=== PATIENT | male | born 1970 | race Caucasian/White ===

== ENCOUNTER 2016-09-30 12:49 | Emergency (ER) | payer MEDICAID ==
[~2016-09-30] VITALS: Wt 105.0 kg
[~2016-09-30 12:49] MED LIST: FIORICET PO
[2016-09-30] MEDS ORDERED: HYDROCODONE/APAP (5/325) TAB PO ONE (16:00)
[2016-09-30 17:16] LABS: ADD UMIC NO; URINE BILIRUBIN (Dip) NEGATIVE (NEGATIVE); URINE BLOOD (Dip) NEGATIVE (NEGATIVE); URINE COLOR LT. YELLOW (YELLOW); URINE GLUCOSE (Dip) NEGATIVE (NEGATIVE); URINE KETONES (Dip) NEGATIVE (NEGATIVE); URINE LEUKOCYTE ESTERASE (Dip) NEGATIVE (NEGATIVE); URINE NITRITE (Dip) NEGATIVE (NEGATIVE); URINE TOTAL PROTEIN (Dip) NEGATIVE (NEGATIVE); URINE UROBILINOGEN (Dip) 0.2 E.U./dL (0.1-1.0)
[2016-09-30 17:22] LABS: ADD SCAN DIFF NO
[2016-09-30 17:44] LABS: ALBUMIN 4.3 g/dl (3.3-4.9); BASOPHILS % 0.5 % (0.0-2.0); EOSINOPHILS # 0.1 10^3/ul (0.0-0.5); EOSINOPHILS % 1.6 % (0.0-7.0); HEMATOCRIT 41.3 % (42.0-52.0); HEMOGLOBIN 13.7 g/dl (14.0-18.0); LYMPHOCYTES # 3.2 10^3/ul (0.8-2.9); LYMPHOCYTES % 42.2 % (15.0-51.0); MEAN CORPUSCULAR HEMOGLOBIN 28.4 pg (29.0-33.0); MEAN CORPUSCULAR HGB CONC 33.2 g/dl (32.0-37.0); MEAN CORPUSCULAR VOLUME 85.7 fl (82.0-101.0); MEAN PLATELET VOLUME 10.6 fl (7.4-10.4); MONOCYTE # 0.4 10^3/ul (0.3-0.9); MONOCYTES % 5.7 % (0.0-11.0); NEUTROPHIL # 3.8 10^3/ul (1.6-7.5); NEUTROPHILS % 49.7 % (39.0-77.0); PLATELET COUNT 245 10^3/UL (140-415); RED BLOOD COUNT 4.82 10^6/ul (4.70-6.10); RED CELL DISTRIBUTION WIDTH 13.5 % (11.5-14.5); WHITE BLOOD COUNT 7.7 10^3/ul (4.8-10.8)
[2016-09-30 17:47] LABS: BILIRUBIN,INDIRECT 0.1 mg/dl (0-1.1); BILIRUBIN,TOTAL 0.1 mg/dl (0.2-1.3); CREATININE 0.82 mg/dl (0.61-1.24)
[2016-09-30 17:48] LABS: ALBUMIN/GLOBULIN RATIO 1.19; CALCIUM 9.4 mg/dl (8.4-10.2); TOTAL PROTEIN 7.9 g/dl (6.1-8.1)
--- NOTE | 2016-09-30 17:54 | RADRPT ---
PROCEDURE: CT Abdomen and Pelvis without contrast. CLINICAL INDICATION: Abdominal and pelvic pain. Right flank pain. TECHNIQUE: CT scan of the abdomen and pelvis without contrast was performed. Coronal and sagittal reformatted images were obtained from the axial source images. Images were reviewed on a high-[employer] PACS workstation. Total exam DLP is 1182.96 mGy-cm. CTDIvol is 20.01 mGy. One or more of the following dose reduction techniques were used: Automated exposure control, adjustment of the mA and/ or kV according to patient size, use of iterative reconstruction technique. COMPARISON: None. FINDINGS: The lung bases are normal. There is no pleural effusion. The liver is normal in size and attenuation. There is no focal hepatic lesion. The gallbladder and bile ducts are normal. The spleen is normal in size. There is no focal splenic lesion. Both adrenals are normal with no enlargement or mass. The pancreas is unremarkable with no mass or evidence of pancreatitis. There is no renal mass or hydronephrosis. There is no renal calculus or ureteral calculus. The abdominal aorta is not dilated. There is no retroperitoneal lymphadenopathy or mass. There is no pelvic lymphadenopathy or mass. The bladder and distal ureters are normal. The periappendiceal region is unremarkable with no evidence of appendicitis. The bowel and mesentery are normal. There is no free fluid or free gas. The osseous structures are unremarkable with no fracture or lytic lesion. IMPRESSION: 1. Unremarkable CT scan of the abdomen and pelvis. 2. No urinary tract calculus or hydronephrosis. 3. No evidence of appendicitis. RPTAT: QQ .Rodolfo Perez MD, MD Date Time Electronically viewed and signed by .Rodolfo Perez MD, on 09/30/2016 17:54 .R/
[2016-09-30] MEDS ORDERED: TRAM50TA2 PO (18:04)
[2016-09-30 18:26] VITALS: BP 132/77; PULSE 67; RESP 16; TEMP 97.6
--- NOTE | 2016-09-30 19:05 | ERD ---
ER Documentation Chief Complaint Date/Time DATE: 09/30/16 TIME: 19:03 Chief Complaint LOWER BACK PAIN X 3 DAYS HPI 38-year-old male otherwise healthy comes in right-sided back pain for the past 3 days. He states it is painful to move, the deep breath in or out. No fevers or chills. Denies dysuria, urgency or frequency. ROS All systems reviewed and are negative except as per history of present illness. Medications Home Meds Active Scripts Tramadol HCl (Tramadol HCl) 50 Mg Tablet, 50 MG PO Q4 Y for PAIN, #15 TAB Prov:ANA DEAN PA-C 09/30/16 Acetamin/Butalbital/Caffeine* (Fioricet*) 1 Tab Tab, 1 TAB PO Q6H Y for PAIN, # 30 TAB Prov:ROYAL BETTENCOURT PA-C 03/28/16 Allergies Allergies: Coded Allergies: No Known Allergy (Unverified , 03/28/16) PMhx/Soc Medical and Surgical Hx: pt denies Medical Hx, pt denies Surgical Hx Hx Alcohol Use: No Hx Substance Use: No Hx Tobacco Use: No Physical Exam Vitals Vital Signs Date Time Temp Pulse Resp B/P Pulse Ox O2 Delivery O2 Flow Rate FiO2 09/30/16 18:26 97.6 67 16 132/77 98 Room Air 09/30/16 12:54 98.0 97 18 180/86 99 Physical Exam General: Well-developed, well-nourished. The patient appears in no acute distress. HEENT: Head is normocephalic, atraumatic. No scleral icterus. Neck: Supple. Nontender. Lungs: Clear to auscultation. Normal air movement. Heart: Regular rate and rhythm. S1 and S2 are normal. No murmurs, gallops, or rubs. Abdomen: Soft, nontender, nondistended. Bowel sounds are normoactive. Back: diffuse right lateral back pain, no midline tenderness. Extremities: No clubbing or cyanosis. Normal pulses. Moving extremities x 4. No weakness. Neurologic: Alert and oriented 3. No focal deficits. Skin: Normal turgor. No rash or lesions. Result Diagram: 09/30/16 1710 09/30/16 1710 Results 24 hrs Laboratory Tests Test 09/30/16 16:55 09/30/16 17:10 Urine Bilirubin NEGATIVE Urine Clarity CLEAR Urine Color LT. YELLOW Urine Glucose NEGATIVE% Urine Hemoglobin NEGATIVE Urine Ketones NEGATIVE Urine Leukocyte Esterase NEGATIVE Urine Nitrite NEGATIVE Urine Specific [place] 1.025 Urine Total Protein NEGATIVE Urine Urobilinogen 0.2 E.U./dL Urine pH 6.0 Alanine Aminotransferase (ALT/SGPT) 66IU/L Albumin 4.3g/dl Albumin/Globulin Ratio 1.19 Alkaline Phosphatase 71IU/L Anion Gap 18 Aspartate Amino Transf (AST/SGOT) 37IU/L Basophils # 0.010^3/ul Basophils % 0.5% Blood Urea Nitrogen 14mg/dl Calcium Level 9.4mg/dl Carbon Dioxide Level 26mmol/L Chloride Level 104mmol/L Creatinine 0.82mg/dl Direct Bilirubin 0.00mg/dl Eosinophils # 0.110^3/ul Eosinophils % 1.6% Globulin 3.60g/dl Glucose Level 91mg/dl Hematocrit 41.3% Hemoglobin 13.7g/dl Indirect Bilirubin 0.1mg/dl Lipase 104U/L Lymphocytes # 3.210^3/ul Lymphocytes % 42.2% Mean Corpuscular Hemoglobin 28.4pg Mean Corpuscular Hemoglobin Concent 33.2g/dl Mean Corpuscular Volume 85.7fl Mean Platelet Volume 10.6fl Monocytes # 0.410^3/ul Monocytes % 5.7% Neutrophils # 3.810^3/ul Neutrophils % 49.7% Nucleated Red Blood Cells # 0.010^3/ul Nucleated Red Blood Cells % 0.0/100WBC Platelet Count 17291^3/UL Potassium Level 4.0mmol/L Red Blood Count 4.8210^6/ul Red Cell Distribution Width 13.5% Sodium Level 144mmol/L Total Bilirubin 0.1mg/dl Total Protein 7.9g/dl White Blood Count 7.710^3/ul Current Medications Medications (Trade) Dose Ordered Sig/Desi Route PRN Reason Start Time Stop Time Status Last Admin Dose Admin Acetaminophen/ Hydrocodone Bitart ([place] (5/325)) 1 tab ONCE ONCE PO 09/30/16 16:00 09/30/16 16:01 DC 09/30/16 17:02 PROCEDURE: CT Abdomen and Pelvis without contrast. CLINICAL INDICATION: Abdominal and pelvic pain. Right flank pain. TECHNIQUE: CT scan of the abdomen and pelvis without contrast was performed. Coronal and sagittal reformatted images were obtained from the axial source images. Images were reviewed on a high-resolution PACS workstation. Total exam DLP is 1182.96 mGy-cm. CTDIvol is 20.01 mGy. One or more of the following dose reduction techniques were used: Automated exposure control, adjustment of the mA and/or kV according to patient size, use of iterative reconstruction technique. COMPARISON: None. FINDINGS: The lung bases are normal. There is no pleural effusion. The liver is normal in size and attenuation. There is no focal hepatic lesion. The gallbladder and bile ducts are normal. The spleen is normal in size. There is no focal splenic lesion. Both adrenals are normal with no enlargement or mass. The pancreas is unremarkable with no mass or evidence of pancreatitis. There is no renal mass or hydronephrosis. There is no renal calculus or ureteral calculus. The abdominal aorta is not dilated. There is no retroperitoneal lymphadenopathy or mass. There is no pelvic lymphadenopathy or mass. The bladder and distal ureters are normal. The periappendiceal region is unremarkable with no evidence of appendicitis. The bowel and mesentery are normal. There is no free fluid or free gas. The osseous structures are unremarkable with no fracture or lytic lesion. IMPRESSION: 1. Unremarkable CT scan of the abdomen and pelvis. 2. No urinary tract calculus or hydronephrosis. 3. No evidence of appendicitis. RPTAT: QQ .Rodolfo Perez MD, MD Date Time Electronically viewed and signed by .Rodolfo Perez MD, on 09/30/2016 17:54 Procedures/MDM 38-year-old male comes in with right-sided back pain, differentials include muscle strain, pyelonephritis, kidney abscess, lung abscess, liver abscess, acute hepatobiliary disease, acute appendicitis, and among others. Patient's workup was unremarkable, there is no leukocytosis, no evidence of an acute or surgical abdominal process. He was given [place] here, and his blood pressure improved as well as his pain. I believe his pain is likely musculoskeletal, advised to take anti-inflammatories, short course of tramadol be given as well for breakthrough pain. Departure Diagnosis: Primary Impression: Back pain Condition: Good Patient Instructions: Self-Care for Low Back Pain Additional Instructions: Call your primary care doctor TOMORROW for an appointment during the next 1-2 days.See the doctor sooner or return here if your condition worsens before your appointment time. ANA DEAN PA-C Sep 30, 2016 19:04
== END 2016-09-30 18:03 | disposition home or self-care (01) ==
LOC: FTE 16:13
DX: M54.5 Low back pain (principal)
CPT/HCPCS: 36415; 74176; 80053; 81003; 83690; 85025; Z7502; Z7610

== ENCOUNTER 2018-09-15 22:25 | Inpatient (IN) | payer MEDICAID ==
[~2018-09-15] VITALS: Ht 165.1 cm; Wt 103.1 kg
[~2018-09-15 22:25] MED LIST changes: +TRAM50TA2 PO
[2018-09-16] MEDS ORDERED: KETOROLAC 60 MG INJ IM STA (01:52)
--- NOTE | 2018-09-16 01:57 | ERD ---
ER Documentation Chief Complaint Chief Complaint PAIN BETWEEN ANUS AND COCCYX X'S 3 DAYS HPI 48-year-old male presents with pain in the sacral area for the past 3 days. States that the pain started after getting up to use the restroom. States the pain is increased when he sits down. Denies seeing any blood on his stool or any hematochezia or hemorrhoids. States that he is also been getting some fevers. He has been taking Motrin for the pain but last time he took it was yesterday. States the pain is 10 out of 10. Denies past medical history. Denies allergies. Denies medications. Denies surgeries. Denies alcohol, tobacco, drug use. Up to date on vaccines. ROS All systems reviewed and are negative except as per history of present illness. Medications Home Meds Active Scripts Hydrocodone/Acetaminophen ([place] 5-325 Tablet) 1 Each Tablet, 1 EACH PO Q6 for pain, #10 TAB Prov:CHET LANDIN [employer] 09/17/18 Amoxicillin/Potassium Clav (Amox-Clav 875-125 mg Tablet) 875-125 mg Tab, 1 TAB PO BID, #20 TAB Prov:CHET LANDIN [employer] 09/17/18 Discontinued Scripts Tramadol HCl (Tramadol HCl) 50 Mg Tablet, 50 MG PO Q4 PRN for PAIN, #15 TAB Prov:ANA DEAN PA-C 09/30/16 Acetamin/Butalbital/Caffeine* (Fioricet*) 1 Tab Tab, 1 TAB PO Q6H PRN for PAIN, #30 TAB Prov:ROYAL BETTENCOURT PA-C 03/28/16 Allergies Allergies: Coded Allergies: No Known Allergy (Unverified , 03/28/16) PMhx/Soc Medical and Surgical Hx: pt denies Medical Hx, pt denies Surgical Hx Hx Alcohol Use: No Hx Substance Use: No Hx Tobacco Use: No Smoking Status: Never smoker FmHx Family History: No diabetes, No coronary disease, No other Physical Exam Vitals Vital Signs Date Temp Pulse Resp B/P (MAP) Pulse Ox O2 O2 Flow FiO2 Time Delivery Rate 09/15/18 98.1 89 20 159/101 97 22:34 (120) Physical Exam Const: No acute distress Head: Atraumatic Eyes: Normal Conjunctiva ENT: Normal External Ears, Nose and Mouth. Neck: Full range of motion. No meningismus. Resp: Clear to auscultation bilaterally Cardio: Regular rate and rhythm, no murmurs Rectal: No hemorrhoids, masses, lesions noted. Tendernes to palpation in the 9:00 perirectal area without any erythema or drainage noted. Neur: Awake and alert Psych: Normal Mood and Affect Result Diagram: 09/17/18 0509 09/17/18 0509 Results 24 hrs Laboratory Tests Test 09/16/18 02:55 White Blood Count 10.7 10^3/ul Red Blood Count 4.35 10^6/ul Hemoglobin 12.3 g/dl Hematocrit 37.3 % Mean Corpuscular Volume 85.7 fl Mean Corpuscular Hemoglobin 28.3 pg Mean Corpuscular Hemoglobin Concent 33.0 g/dl Red Cell Distribution Width 12.9 % Platelet Count 250 10^3/UL Mean Platelet Volume 10.0 fl Immature Granulocytes % 0.400 % Neutrophils % 69.2 % Lymphocytes % 23.6 % Monocytes % 5.6 % Eosinophils % 0.7 % Basophils % 0.5 % Nucleated Red Blood Cells % 0.0 /100WBC Immature Granulocytes # 0.040 10^3/ul Neutrophils # 7.4 10^3/ul Lymphocytes # 2.5 10^3/ul Monocytes # 0.6 10^3/ul Eosinophils # 0.1 10^3/ul Basophils # 0.1 10^3/ul Nucleated Red Blood Cells # 0.0 10^3/ul Sodium Level 140 mmol/L Potassium Level 4.0 mmol/L Chloride Level 103 mmol/L Carbon Dioxide Level 29 mmol/L Anion Gap 8 Blood Urea Nitrogen 16 mg/dl Creatinine 0.94 mg/dl Est Glomerular Filtrat Rate mL/min > 60 mL/min Glucose Level 102 mg/dl Calcium Level 9.5 mg/dl Total Bilirubin 0.1 mg/dl Direct Bilirubin 0.00 mg/dl Indirect Bilirubin 0.1 mg/dl Aspartate Amino Transf (AST/SGOT) 29 IU/L Alanine Aminotransferase (ALT/SGPT) 45 IU/L Alkaline Phosphatase 79 IU/L Total Protein 8.0 g/dl Albumin 4.1 g/dl Globulin 3.90 g/dl Albumin/Globulin Ratio 1.05 Current Medications Medications Dose Sig/Desi Start Time Status Last (Trade) Ordered Route PRN Stop Time Admin Dose Reason Admin Ketorolac 60 mg ONCE STAT 09/16/18 DC 09/16/18 Tromethamine IM 01:52 02:05 (Toradol) 09/16/18 01:54 Sodium 100 ml @ ud STK-MED 09/16/18 DC Chloride ONCE .ROUTE 03:33 09/16/18 03:34 Iohexol 150 ml STK-MED 09/16/18 DC (Omnipaque ONCE .ROUTE 03:33 300mg/ ml) 09/16/18 03:34 Sodium 1,000 ml @ [id number] IV 09/16/18 DC 09/16/18 Chloride 80 mls/hr 05:45 06:50 09/16/18 07:18 Procedures/MDM DIAGNOSTIC IMAGING REPORT Patient: JASSON VEGA : 1970 Age: 48 Sex: M MR #: [id number] DOS: 09/16/18 0152 Ordering MD: RADHA KIMBROUGH Location: [facility] Room/Bed: PROCEDURE: CT pelvis with contrast CLINICAL INDICATION: 3-day history of sacral region pain. TECHNIQUE: Spiral CT images through the pelvis without administration of oral and during administration of 100 cc of Omnipaque-300 contrast material. Scanning of the abdomen was specifically not requested. Multiplanar reconstructions. The total exam CTDI equals 15.05 mGy and the total exam DLP equals 694.50 mGy-cm. One or more of the following dose reduction techniques were used: automated exposure control, adjustment of the mA and/or kV according to patient size, or use of iterative reconstruction technique. DICOM images are available. COMPARISON: CT 09/30/2016 FINDINGS: There is distal perirectal fat stranding with small nodes present. Slightly more inferiorly, there is also a crescentic hypodense collection measuring 16 mm transverse by 8 mm AP (axial image 107) by 13 mm in length (coronal image 60) consistent with a perirectal abscess, extending from the 5 o'clock to 9 o'clock location. No obvious inferior fistulous extension to the gluteal cutaneous surface is seen. Remaining visualized colon and small bowel are within normal limits as is the appendix. The prostate is normal in size. The urinary bladder is unremarkable. Scattered small nodes with surrounding haziness along the root of the mesentery suggesting ongoing or recurrent mild nonspecific mesenteritis, that is unchanged in appearance. Osseous structures stable without acute or aggressive appearing osseous abnormality. IMPRESSION: Small posterior perirectal abscess without definite fistulous extension inferiorly to the gluteal skin surface. There is distal rectal wall thickening with perirectal fat stranding and small nodes present. MRI could be obtained for further evaluation on a follow-up basis. Stable appearance of small mesenteric nodes with surrounding haziness, as above. RPTAT: HSAF Physician Dustin Date Time Electronically viewed and signed by Whitley Liriano Physician on 09/16/2018 04:36 RF/ CC: RADHA KIMBROUGH [phone] MDM: 48-year-old male presents with pain in the sacral area for the past 3 days. States that the pain started after getting up to use the restroom. States the pain is increased when he sits down. Denies seeing any blood on his stool or any hematochezia or hemorrhoids. States that he is also been getting some fevers. He has been taking Motrin for the pain but last time he took it was yesterday. States the pain is 10 out of 10. Rectal exam there was tenderness to palpation in the perianal area but there were no masses palpated. Therefore there was suspicion of a perirectal mass for which a CT was ordered. CT was positive for perirectal mass. Patient was given pain medication in the ER. I discussed the case with Dr. Hill my supervising physician and decision was made to admit patient. I have low suspicion for sepsis or fistula. Patient admit vahe. Departure Diagnosis: Primary Impression: Perirectal abscess Condition: Serious LUIS ERADHA Sep 16, 2018 01:57
[2018-09-16] MEDS ORDERED: IOHEXOL 300MG/ML 150 ML BTL ONE (03:33)
[2018-09-16] MEDS ORDERED: SOD CHLORIDE 0.9% 100 ML ONE (03:33)
[2018-09-16] MEDS ORDERED: SOD CHLORIDE 0.9% 1,000 ML IV SCH (05:45)
[2018-09-16] MEDS ORDERED: ONDANSETRON 4 MG INJ IV PRN ×2 (06:00→07:00)
[2018-09-16] MEDS ORDERED: ACETAMINOPHEN 325 MG TAB PO PRN (06:00)
--- NOTE | 2018-09-16 06:49 | HP ---
Date/Time of Note Date/Time of Note DATE: 09/16/18 TIME: 06:47 Assessment/Plan VTE Prophylaxis Pharmacological prophylaxis: heparin Assessment/Plan Assessment/Plan 1. Perirectal abscess -IV antibiotic -Awaiting surgical eval 2. Normocytic anemia -Monitor for now Result Diagram: 09/16/18 0255 09/16/18 0255 Results 24hrs Laboratory Tests Test 09/16/18 02:55 White Blood Count 10.7 # Red Blood Count 4.35 L Hemoglobin 12.3 L Hematocrit 37.3 L Mean Corpuscular Volume 85.7 Mean Corpuscular Hemoglobin 28.3 L Mean Corpuscular Hemoglobin Concent 33.0 Red Cell Distribution Width 12.9 Platelet Count 250 Mean Platelet Volume 10.0 Immature Granulocytes % 0.400 Neutrophils % 69.2 Lymphocytes % 23.6 Monocytes % 5.6 Eosinophils % 0.7 Basophils % 0.5 Nucleated Red Blood Cells % 0.0 Immature Granulocytes # 0.040 H Neutrophils # 7.4 Lymphocytes # 2.5 Monocytes # 0.6 Eosinophils # 0.1 Basophils # 0.1 Nucleated Red Blood Cells # 0.0 Sodium Level 140 Potassium Level 4.0 Chloride Level 103 Carbon Dioxide Level 29 Anion Gap 8 Blood Urea Nitrogen 16 Creatinine 0.94 Est Glomerular Filtrat Rate mL/min > 60 Glucose Level 102 Calcium Level 9.5 Total Bilirubin 0.1 L Direct Bilirubin 0.00 Indirect Bilirubin 0.1 Aspartate Amino Transf (AST/SGOT) 29 Alanine Aminotransferase (ALT/SGPT) 45 Alkaline Phosphatase 79 Total Protein 8.0 Albumin 4.1 Globulin 3.90 H Albumin/Globulin Ratio 1.05 HPI/ROS Admit Date/Time Admit Date/Time Hx of Present Illness This is a 48-year-old male with no significant past medical history who presents the ER complaining of perirectal and sacral area pain. Symptoms started 3 days ago and has been progressively getting worse. Denies trauma, diarrhea, fever/chills. Pelvis CT in the ER shows perirectal abscess. Basic lab shows a hemoglobin of 12.3 otherwise CBC and CMP within acceptable range. Vitals within acceptable range as well PMH/Family/Social Past Medical History Medications Current Medications Sodium Chloride 1,000 ml @ 80 mls/hr [id number] IV ; Start 09/16/18 at 05:45; Stop 09/16/18 at 18:14 Ondansetron HCl (Zofran Inj) 4 mg BRIDGE ORDER PRN IV NAUSEA/VOMITING; Start 09/16/18 at 06:00; Stop 09/17/18 at 05:59 Acetaminophen (Tylenol Tab) 650 mg ER BRIDGE PRN PO .MILD PAIN 1-3 OR TEMP; Start 09/16/18 at 06:00; Stop 09/17/18 at 05:59 Coded Allergies: No Known Allergy (Unverified , 03/28/16) Social History Smoking Status: Never smoker Exam/Review of Systems Vital Signs Vitals Vital Signs Date Temp Pulse Resp B/P (MAP) Pulse Ox O2 O2 Flow FiO2 Time Delivery Rate 09/16/18 98.5 74 16 130/84 98 Room Air 05:50 (99) Exam Exam Past Surgical History Past Surgical Hx: other (see hpi) Family History Significant Family History: no pertinent family hx Social History Alcohol Use: other Smoking Status: Unknown if ever smoked Drug Use: none, other Exam Constitutional: other (no acute distress) Head: normocephalic, atraumatic Eyes: PERRL Respiratory: clear to auscultation Cardiovascular: regular rate and rhythm Gastrointestinal: soft RADHA MORRISON MD Sep 16, 2018 06:49
[2018-09-16] MEDS ORDERED: morphine 2 MG INJ IV PRN (07:00)
[2018-09-16] MEDS ORDERED: NACL 0.9% 3 ML SYG IV SCH (07:00)
[2018-09-16] MEDS: PIPER-TAZO 3.375 GM IV (PMX) 100 ML IVPB SCH ×3 (07:36→20:11)
[2018-09-16 08:32] VITALS: BP 124/76; PULSE 76; RESP 18
[2018-09-16] MEDS: DEXTROSE 5%-0.45% NACL 1,000 ML IV SCH ×2 (10:17→19:26)
[2018-09-16 10:25] VITALS: Ht 165.1 cm; Wt 103.1 kg
--- NOTE | 2018-09-16 11:57 | CONS ---
Assessment/Plan Assessment/Plan Assessment/Plan (Daily) Perianal pain possible a perirectal abscess though not mature to abscess on physical exam. CAT scan was relatively small at 1.2 cm. Recommendation keep on IV antibiotics and p.o. will evaluate if this does not resolve with conservative measures may necessitate examination under anesthesia. Blood cell count was normal Consultation Date/Type/Reason Admit Date/Time Date of Consultation: Sep 16, 2018 Type of Consult General surgery Reason for Consultation Possible perirectal abscess Requesting Provider: RADHA MORRISON MD Date/Time of Note DATE: 09/16/18 TIME: 11:57 Hx of Present Illness Patient presents with 4-day history of pain in the coccygeal area. Patient denies any similar symptoms to this in the past. Denies any hemorrhoids. Patient states that he has some issues chronically with constipation and noticed over the last few days that he has had some tenderness posterior to the anus. He denies any drainage or bleeding swelling. He has some tenderness of just left of midline in the perianal area. Presented to the emergency room for evaluation CAT scan was obtained which showed possible perirectal abscess which was quite small at approximately 1 cm. Patient denies any other ethical issues Past Medical History Home Meds Discontinued Scripts Tramadol HCl (Tramadol HCl) 50 Mg Tablet, 50 MG PO Q4 PRN for PAIN, #15 TAB Prov:ANA DEAN PA-C 09/30/16 Acetamin/Butalbital/Caffeine* (Fioricet*) 1 Tab Tab, 1 TAB PO Q6H PRN for PAIN, #30 TAB Prov:ROYAL BETTENCOURT PA-C 03/28/16 Medications Current Medications Acetaminophen (Tylenol Tab) 650 mg ER BRIDGE PRN PO .MILD PAIN 1-3 OR TEMP; Start 09/16/18 at 06:00; Stop 09/17/18 at 05:59 Dextrose/Sodium Chloride 1,000 ml @ 120 mls/hr Q8H20M IV Last administered on 09/16/18at 10:17; Admin Dose 120 MLS/HR; Start 09/16/18 at 06:45 IV Flush (NS 3 ml) 3 ml PER PROTOCOL IV ; Start 09/16/18 at 07:00 Ondansetron HCl (Zofran Inj) 4 mg Q6H PRN IV NAUSEA/VOMITING; Start 09/16/18 at 07:00 Morphine Sulfate (morphine) 2 mg Q4H PRN IV .SEVERE PAIN 7-10; Start 09/16/18 at 07:00 Piperacillin Sod/ Tazobactam Sod 100 ml @ 200 mls/hr Q6H IVPB Last administered on 09/16/18at 07:36; Admin Dose 200 MLS/HR; Start 09/16/18 at 07:00 Allergies: Coded Allergies: No Known Allergy (Unverified , 03/28/16) Social History Smoking Status: Never smoker Exam/Review of Systems Exam Vitals Vital Signs Date Temp Pulse Resp B/P (MAP) Pulse Ox O2 O2 Flow FiO2 Time Delivery Rate 09/16/18 97.8 76 18 124/76 99 Room Air 08:32 (92) Exam Examination lungs are clear Heart regular rate and rhythm without gallops murmurs rubs or Abdomen is soft nondistended nontender. Rectal exam no fissures noted there is no hemorrhoids in the posterior area. The anal area just left of the midline there is some slight tenderness but no swelling no fluctuance appreciated. Results Result Diagram: 09/16/18 0255 09/16/18 0255 Results 24hrs Laboratory Tests Test 09/16/18 02:55 White Blood Count 10.7 # Red Blood Count 4.35 L Hemoglobin 12.3 L Hematocrit 37.3 L Mean Corpuscular Volume 85.7 Mean Corpuscular Hemoglobin 28.3 L Mean Corpuscular Hemoglobin Concent 33.0 Red Cell Distribution Width 12.9 Platelet Count 250 Mean Platelet Volume 10.0 Immature Granulocytes % 0.400 Neutrophils % 69.2 Lymphocytes % 23.6 Monocytes % 5.6 Eosinophils % 0.7 Basophils % 0.5 Nucleated Red Blood Cells % 0.0 Immature Granulocytes # 0.040 H Neutrophils # 7.4 Lymphocytes # 2.5 Monocytes # 0.6 Eosinophils # 0.1 Basophils # 0.1 Nucleated Red Blood Cells # 0.0 Sodium Level 140 Potassium Level 4.0 Chloride Level 103 Carbon Dioxide Level 29 Anion Gap 8 Blood Urea Nitrogen 16 Creatinine 0.94 Est Glomerular Filtrat Rate mL/min > 60 Glucose Level 102 Calcium Level 9.5 Total Bilirubin 0.1 L Direct Bilirubin 0.00 Indirect Bilirubin 0.1 Aspartate Amino Transf (AST/SGOT) 29 Alanine Aminotransferase (ALT/SGPT) 45 Alkaline Phosphatase 79 Total Protein 8.0 Albumin 4.1 Globulin 3.90 H Albumin/Globulin Ratio 1.05 Medications Medication Current Medications Acetaminophen (Tylenol Tab) 650 mg ER BRIDGE PRN PO .MILD PAIN 1-3 OR TEMP; Start 09/16/18 at 06:00; Stop 09/17/18 at 05:59 Dextrose/Sodium Chloride 1,000 ml @ 120 mls/hr Q8H20M IV Last administered on 09/16/18at 10:17; Admin Dose 120 MLS/HR; Start 09/16/18 at 06:45 IV Flush (NS 3 ml) 3 ml PER PROTOCOL IV ; Start 09/16/18 at 07:00 Ondansetron HCl (Zofran Inj) 4 mg Q6H PRN IV NAUSEA/VOMITING; Start 09/16/18 at 07:00 Morphine Sulfate (morphine) 2 mg Q4H PRN IV .SEVERE PAIN 7-10; Start 09/16/18 at 07:00 Piperacillin Sod/ Tazobactam Sod 100 ml @ 200 mls/hr Q6H IVPB Last administered on 09/16/18at 07:36; Admin Dose 200 MLS/HR; Start 09/16/18 at 07:00 RADHA BENZ MD Sep 16, 2018 11:57
[2018-09-16] MEDS ORDERED: KETOROLAC 30 MG INJ IV PRN (13:00)
--- NOTE | 2018-09-16 13:20 | QN ---
Documentation Comment 48-year-old obese male with no medical history, admitted with perianal pain with possible perirectal abscess measuring 1.2 cm. Status post surgery review of case, recommended management with antibiotics and reevaluate for need for further exam under anesthesia. Currently, patient with no fevers, improved pain status. There is no leukocytosis. He wants to eat. As there is no surgical plan at this time, we will start him on a diet and will continue antibiotics and follow-up in a.m. Case discussed with CHET Cisneros NP Sep 16, 2018 13:20
[2018-09-16 15:02] VITALS: BP 132/81; PULSE 68; RESP 18
[2018-09-16 19:30] VITALS: BP 127/63; PULSE 78; RESP 18
[2018-09-17] MEDS: PIPER-TAZO 3.375 GM IV (PMX) 100 ML IVPB SCH ×2 (01:01→07:13)
[2018-09-17 02:15] VITALS: BP 122/76; PULSE 74; RESP 18
[2018-09-17] MEDS: DEXTROSE 5%-0.45% NACL 1,000 ML IV SCH (04:56)
[2018-09-17 07:30] VITALS: BP 134/87; PULSE 75; RESP 18
--- NOTE | 2018-09-17 11:57 | PDOCDIS ---
Discharge Instructions CONDITION [id number] Patient Condition: [id number] Good HOME CARE INSTRUCTIONS: [id number] Diet Instructions: [id number] Regular FOLLOW UP/APPOINTMENTS Follow-up Plan 1. You had an abscess in your rectal area which is measuring very small. Currently, it is responding very nicely with antibiotics, not requiring surgery. You will be prescribed with the antibiotic to take which you should take with meals and with 1 full cup of water however, if you feel any worsening symptoms, worsening pain, fever, any drainage from the area, please come back to the emergency room. You will need to follow-up with Dr. Cardona in 1 week. [address] [facility] [place] [address] Office 2. Follow-up with primary care physician in 1 week CHET LANDIN NP Sep 17, 2018 11:57
[2018-09-17] MEDS ORDERED: HYDR-4011 PO (11:58)
[2018-09-17] MEDS ORDERED: AMOX1TAB10 PO (11:58)
--- NOTE | 2018-09-17 12:05 | DS ---
Date/Time of Note Date/Time of Note DATE: 09/17/18 TIME: 12:04 Discharge Summary Admission/Discharge Info Admit Date/Time Sep 16, 2018 at 05:46 Discharge Date/Time Discharge Diagnosis 1. Tiny Perirectal abscess. Stable. Patient Condition: Stable Consults Dr. Cardona, surgeon Procedures 09/16/2018. Pelvis CT. IMPRESSION: Small posterior perirectal abscess without definite fistulous extension inferiorly to the gluteal skin surface. There is distal rectal wall thickening with perirectal fat stranding and small nodes present. MRI could be obtained for further evaluation on a follow-up basis. Stable appearance of small mesenteric nodes with surrounding haziness, as above. Hospital Course 48-year-old obese male with no medical history, admitted with perianal pain with a perirectal abscess measuring 1.2 cm. Patient had surgery review. Since the abscess was very tiny, patient with no fevers, no white count elevation, conservative medical management with antibiotic was proposed. Patient did well on antibiotic. His pain completely resolved. He did not have any fevers or leukocytosis. At this time, as per surgery, patient is safe for outpatient follow-up with continuation of antib iotic preferably Augmentin for another 10 days with surgery follow-up in his clinic for evaluation. Approximately 60 m spent on coordinating the discharge on this patient. [facility] Amoxicillin/Potassium Clav (Amox-Clav 875-125 mg Tablet) 875-125 mg Tab, 1 TAB PO BID, #20 TAB Prov:CHET LANDIN V. [employer]ING [employer]GER 09/17/18 Discontinued Scripts Tramadol HCl (Tramadol HCl) 50 Mg Tablet, 50 MG PO Q4 PRN for PAIN, #15 TAB Prov:ANA DEAN PA-C 09/30/16 Acetamin/Butalbital/Caffeine* (Fioricet*) 1 Tab Tab, 1 TAB PO Q6H PRN for PAIN, #30 TAB Prov:ROYAL BETTENCOURT PA-C 03/28/16 Follow-up Plan 1. You had an abscess in your rectal area which is measuring very small. Currently, it is responding very nicely with antibiotics, not requiring surgery. You will be prescribed with the antibiotic to take which you should take with meals and with 1 full cup of water however, if you feel any worsening symptoms, worsening pain, fever, any drainage from the area, please come back to the emergency room. You will need to follow-up with Dr. Cardona in 1 week. [address] [facility] [place] [address] Office 2. Follow-up with primary care physician in 1 week Primary Care Provider Not On Staff Doctor Pending Labs Laboratory Tests Test 09/17/18 05:09 White Blood Count 9.2 10^3/ul (4.8-10.8) Red Blood Count 4.47 10^6/ul (4.70-6.10) Hemoglobin 12.4 g/dl (14.0-18.0) Hematocrit 38.2 % (42.0-52.0) Mean Corpuscular Volume 85.5 fl (82.0-101.0) Mean Corpuscular Hemoglobin 27.7 pg (29.0-33.0) Mean Corpuscular Hemoglobin Concent 32.5 g/dl (32.0-37.0) Red Cell Distribution Width 13.1 % (11.5-14.5) Platelet Count 244 10^3/UL (140-415) Mean Platelet Volume 10.6 fl (7.4-10.4) Immature Granulocytes % 0.300 % (0.001-0.429) Neutrophils % 60.7 % (39.0-77.0) Lymphocytes % 29.9 % (15.0-51.0) Monocytes % 7.5 % (0.0-11.0) Eosinophils % 0.9 % (0.0-7.0) Basophils % 0.7 % (0.0-2.0) Nucleated Red Blood Cells % 0.0 /100WBC (0.0-0.0) Immature Granulocytes # 0.030 10^3/ul (0.0-0.031) Neutrophils # 5.6 10^3/ul (1.6-7.5) Lymphocytes # 2.8 10^3/ul (0.8-2.9) Monocytes # 0.7 10^3/ul (0.3-0.9) Eosinophils # 0.1 10^3/ul (0.0-0.5) Basophils # 0.1 10^3/ul (0.0-0.1) Nucleated Red Blood Cells # 0.0 10^3/ul (0.0-0.0) Sodium Level 141 mmol/L (135-144) Potassium Level 3.9 mmol/L (3.5-5.1) Chloride Level 106 mmol/L (97-110) Carbon Dioxide Level 26 mmol/L (21-31) Anion Gap 9 (5-13) Blood Urea Nitrogen 11 mg/dl (7-20) Creatinine 0.94 mg/dl (0.61-1.24) Est Glomerular Filtrat Rate mL/min > 60 mL/min (>60) Glucose Level 102 mg/dl (70-220) Calcium Level 8.5 mg/dl (8.4-10.2) Phosphorus Level 3.6 mg/dl (2.5-4.9) Magnesium Level 2.0 mg/dl (1.7-2.5) Total Bilirubin 0.3 mg/dl (0.2-1.3) Direct Bilirubin 0.00 mg/dl (0.00-0.20) Indirect Bilirubin 0.3 mg/dl (0-1.1) Aspartate Amino Transf (AST/SGOT) 20 IU/L (15-46) Alanine Aminotransferase (ALT/SGPT) 26 IU/L (13-69) Alkaline Phosphatase 71 IU/L (42-121) Total Protein 7.5 g/dl (6.1-8.1) Albumin 3.7 g/dl (3.3-4.9) Globulin 3.80 g/dl (1.3-3.2) Albumin/Globulin Ratio 0.97 CHET LANDIN NP Sep 17, 2018 12:05
== END 2018-09-17 12:40 | disposition home or self-care (01) | DRG 395 ==
LOC: FTE 22:25 → MS1 09-16 05:46
PROVIDERS: ADMIT Internal Medicine; ATTEND Internal Medicine
DX: K61.1 Rectal abscess (principal); D64.9 Anemia, unspecified; E66.9 Obesity, unspecified; Z68.37 Body mass index [BMI] 37.0-37.9, adult
CPT/HCPCS: 72193; 80053; 83735; 84100; 85025; J1885; J2543; J7030; J7042; Q9967

== ENCOUNTER 2018-12-07 12:28 | Emergency (ER) | payer MEDICAID ==
[~2018-12-07] VITALS: Wt 102.4 kg
[~2018-12-07 12:28] MED LIST changes: +AMOX1TAB10 PO; -FIORICET PO; +HYDR-4011 PO; -TRAM50TA2 PO
--- NOTE | 2018-12-07 13:26 | ERD ---
ER Documentation Chief Complaint Chief Complaint DIZZINESS HPI The patient is a 48-year-old male, presenting to the ER because of acute dizziness when he woke up this morning, he feels as if the room is spinning, had similar symptoms previously, denies fever, chills, neck pain, chest pain, dyspnea, abdominal pain, vomiting, dysuria, diarrhea. He does not smoke nor drink or use illicit drug This medical/surgical history: None ROS All systems reviewed and are negative except as per history of present illness. Medications Home Meds Active Scripts Meclizine Hcl* (Antivert*) 12.5 Mg Tab, 25 MG PO Q6H PRN for DIZZINESS, #20 TAB Prov:MIKE SAGASTUME MD 12/07/18 Discontinued Scripts Hydrocodone/Acetaminophen ([place] 5-325 Tablet) 1 Each Tablet, 1 EACH PO Q6 for pain, #10 TAB Prov:LANDIN,CHET V. [employer] EDITOR 09/17/18 Amoxicillin/Potassium Clav (Amox-Clav 875-125 mg Tablet) 875-125 mg Tab, 1 TAB PO BID, #20 TAB Prov:LANDINCHET V. SCI[employer]IFIC PUBLICATIONS EDITOR 09/17/18 Allergies Allergies: Coded Allergies: No Known Allergy (Unverified , 12/07/18) PMhx/Soc History of Surgery: Yes (Skull surgery (1998) Right forearm (1977)) Anesthesia Reaction: No Hx Neurological Disorder: No Hx Respiratory Disorders: No Hx Cardiac Disorders: No Hx Psychiatric Problems: No Hx Miscellaneous Medical Probl: No Hx Alcohol Use: No Hx Substance Use: No Hx Tobacco Use: No Physical Exam Vitals Vital Signs Date Temp Pulse Resp B/P (MAP) Pulse Ox O2 O2 Flow FiO2 Time Delivery Rate 12/07/18 71 20 138/77 98 15:48 (97) 12/07/18 98.5 74 18 164/83 96 12:35 (110) Physical Exam Const: No acute distress. Head: Atraumatic. Eyes: Normal Conjunctiva. ENT: Normal External Ears, Nose and Mouth. Neck: Full range of motion. No meningismus. Resp: Clear to auscultation bilaterally. Cardio: Regular rate and rhythm. Abd: Soft, non distended, normal bowel sounds, non tender. Skin: No petechiae or rashes. Back: No midline or flank tenderness. Ext: No cyanosis, or edema. Neur: Awake and alert. No focal deficit Psych: Normal Mood and Affect. Result Diagram: 12/07/18 1356 12/07/18 1356 Results 24 hrs Laboratory Tests Test 12/07/18 13:56 White Blood Count 6.8 10^3/ul Red Blood Count 4.79 10^6/ul Hemoglobin 13.5 g/dl Hematocrit 40.8 % Mean Corpuscular Volume 85.2 fl Mean Corpuscular Hemoglobin 28.2 pg Mean Corpuscular Hemoglobin Concent 33.1 g/dl Red Cell Distribution Width 13.2 % Platelet Count 227 10^3/UL Mean Platelet Volume 10.6 fl Immature Granulocytes % 0.100 % Neutrophils % 44.4 % Lymphocytes % 43.7 % Monocytes % 9.5 % Eosinophils % 1.6 % Basophils % 0.7 % Nucleated Red Blood Cells % 0.0 /100WBC Immature Granulocytes # 0.010 10^3/ul Neutrophils # 3.0 10^3/ul Lymphocytes # 3.0 10^3/ul Monocytes # 0.7 10^3/ul Eosinophils # 0.1 10^3/ul Basophils # 0.1 10^3/ul Nucleated Red Blood Cells # 0.0 10^3/ul Sodium Level 141 mmol/L Potassium Level 4.1 mmol/L Chloride Level 105 mmol/L Carbon Dioxide Level 26 mmol/L Anion Gap 10 Blood Urea Nitrogen 13 mg/dl Creatinine 0.77 mg/dl Est Glomerular Filtrat Rate mL/min > 60 mL/min Glucose Level 104 mg/dl Calcium Level 9.8 mg/dl Procedures/MDM EKG: Read by emergency physician Rate/Rhythm: Normal Sinus Rhythm 72 beats/min QRS, ST, T-waves: No ST elevation, no T inversion, LAD, RBBB, inferior Q's Impression: Abnormal EKG MEDICAL MAKING DECISION: The patient is a 48-year-old male, presenting with acute dizziness of unclear etiology, was treated with Antivert 25 mg p.o. for dizziness and Zofran IV for nausea good response, is stable for outpatient follow-up The differential diagnoses considered include but are not limited to central causes such as cerebellar infarct, cerebellar hemorrhage, cerebellar tumor, acoustic neuroma, peripheral causes such as benign positional vertigo, la byrinthitis, medication, Meniere's disease. Departure Diagnosis: Primary Impression: Dizziness Additional Impression: Anemia Condition: Good Comments The patient's blood pressure was elevated (>120/80) but appears stable without evidence of hypertension emergency or urgency. The patient was counseled about the risks of hypertension and urged to pursue outpatient monitoring and therapy within a week with their primary care physician. I discussed the findings with the patient. I advised the patient to follow-up with the primary physician in about 2-3 days, sooner if needed and return if any concern. Disclaimer: Inadvertent spelling and grammatical errors are likely due to EHR/dictation software use and do not reflect on the overall quality of patient care. Also, please note that the electronic time recorded on this note does not necessarily reflect the actual time of the patient encounter. MIKE SAGASTUME MD December 07, 2018 13:26
[2018-12-07] MEDS ORDERED: MECL12.574 PO (15:24)
[2018-12-07 15:48] VITALS: BP 138/77; PULSE 71; RESP 20
== END 2018-12-07 15:48 | disposition home or self-care (01) ==
LOC: E/R 12:28
DX: D64.9 Anemia, unspecified (principal)
CPT/HCPCS: 36415; 70450; 80048; 85025; 93005; Z7502